=== PATIENT | male | born 1950 | race Caucasian/White ===

== ENCOUNTER → 2020-09-10 11:34 | Outpatient (BNVA) | payer MEDICARE, OTHER, SELFPAY | PROVIDERS: Family Provider Family Medicine; Referring Provider Family Medicine; Visit Provider Specialist | DX: M25.552 Pain in left hip (principal) | CPT/HCPCS: 73523 ==

== ENCOUNTER → 2020-09-24 13:57 | Outpatient (BNVA) | payer MEDICARE, OTHER, SELFPAY | PROVIDERS: Family Provider Family Medicine; Referring Provider Specialist; Visit Provider Anesthesiology Pain Medicine | DX: G89.29 Other chronic pain (principal); M48.062 Spinal stenosis, lumbar region with neurogenic claudication; M47.816 Spondylosis without myelopathy or radiculopathy, lumbar region; M53.3 Sacrococcygeal disorders, not elsewhere classified | CPT/HCPCS: 99204 ==

== ENCOUNTER 2020-10-06 15:37 | Outpatient (CLI) | payer MEDICARE, OTHER, SELFPAY ==
--- NOTE | 2020-10-06 16:45 | MR_ITS ---
WS: [id number] MRI LUMBAR SPINE NONCONTRAST HISTORY: M48.062 - Spinal stenosis, chronic back pain. COMPARISON: None available. TECHNIQUE: Sagittal and axial multisequence imaging is submitted. Advanced degenerative disc disease in the cervical spine. Component of central canal stenosis at sukumar ral levels most significant at C3-4 and C5-6. L4 anterolisthesis by 2 mm. 20% age indeterminate compression fracture involving L3. No retropulsion of posterior vertebral body. There is very minimal edema along the superior endplate of the L3 verteb ral body greatest to the LEFT of midline. Mild disc space narrowing and desiccation throughout. Benign hemangioma at L5. Conus terminates normally at L1-2 disc level. L1-L2: Mild annular disc bulge. Disc protrusion and osteophyte in the RIGHT foramen with significant encroachment upon the RIGHT L1 nerve root. Mild RIGHT foraminal stenosis. L2-L3: Diffuse asymmetric disc bulging with circumferential osteophytosis. Moderate ligamentum flavum hypertrophy and facet arthritis. Disc and osteophyte disease and facet arthritis causing mild centra l stenosis with moderate RIGHT and mild LEFT foraminal stenosis. There is significant inflammation eagle rrounding the facet joints bilaterally and the paraspinal soft tissues at L2 and L3. Slightly greater inflammatory changes on the RIGHT. L3-L4: Diffuse annular disc bulging and osteophytic ridging. Moderate ligamentum flavum and facet hyp ertrophy. Facet hypertrophy is encroaching into the foramina bilaterally and also the central canal. Mild increase in the epidural fat. Mild central and bilateral foraminal stenosis. L4-L5: Diffuse annular disc bulging and osteophytic ridging. Ligamentum flavum and moderate facet jeanette nt arthritis encroaching into the thecal sac. There is severe central, bilateral subarticular recess, lateral recess and moderate foraminal stenosis. L5-S1: Diffuse annular disc bulging and osteophytic ridging. Mild ligamentum flavum disease and facet arthritis. Moderate to severe bilateral foraminal stenosis, RIGHT greater than LEFT and mild central stenosis. Disc and osteophyte contact on the S1 nerve roots bilaterally, greatest on the LEFT. Partially visualized cyst associated with the LEFT kidney. Changes in the RIGHT psoas muscle at the L 2 vertebral body. Favor this is probably atrophy and fatty replacement. No increased signal noted on the STIR sequence. MR/MR lumbar spine wo con* [id number] IMPRESSION: 1. Age-indeterminate L3 compression fracture by 20%. There is a small amount o f marrow edema persisting in the LEFT lateral vertebral body. No retropulsion. 2. Facet joint synovitis bilaterally at L2-3, greatest on the RIGHT. Some of t hese changes may be new or to a recent facet joint injection if that history is relevant. 3. Multilevel central and foraminal stenosis. 4. Severe central, bilateral subarticular recess, lateral recess and moderate foraminal stenosis at L4-5 due to combination of factors. 5. Moderate to severe bilateral foraminal stenosis L5-S1, greatest on the RIGH T with mild central stenosis. Disc and osteophyte contact on the S1 nerve roots bilaterally. Contact greatest involving the LEFT S1 nerve root. 6. Moderate RIGHT foraminal stenosis L2-3 with mild central and LEFT foraminal stenosis. 7. Mild central and bilateral foraminal stenosis at L3-4.
== END 2020-10-06 15:38 | disposition home or self-care (01) ==
LOC: RADSHAW 15:43
PROVIDERS: PCP Family Medicine; Visit Provider Anesthesiology Pain Medicine
DX: M48.062 Spinal stenosis, lumbar region with neurogenic claudication (principal); S32.039A Unspecified fracture of third lumbar vertebra, initial encounter for closed fracture; M65.88 Other synovitis and tenosynovitis, other site; M48.061 Spinal stenosis, lumbar region without neurogenic claudication; M48.07 Spinal stenosis, lumbosacral region
CPT/HCPCS: 72148

== ENCOUNTER → 2020-10-08 13:13 | Outpatient (BNVA) | payer MEDICARE, OTHER, SELFPAY | PROVIDERS: PCP Family Medicine; Visit Provider Anesthesiology Pain Medicine | DX: G89.29 Other chronic pain (principal); M53.3 Sacrococcygeal disorders, not elsewhere classified; M47.816 Spondylosis without myelopathy or radiculopathy, lumbar region; M51.36 Other intervertebral disc degeneration, lumbar region; M48.061 Spinal stenosis, lumbar region without neurogenic claudication | CPT/HCPCS: 99214 ==

== ENCOUNTER → 2020-10-13 13:19 | Outpatient (BNVA) | payer MEDICARE, OTHER, SELFPAY | PROVIDERS: PCP Family Medicine; Visit Provider Anesthesiology Pain Medicine | DX: M47.816 Spondylosis without myelopathy or radiculopathy, lumbar region (principal) | CPT/HCPCS: 64493; 64494; 64495; J3490 ==

== ENCOUNTER 2020-10-20 06:00 | Outpatient (RCR) | payer MEDICARE, OTHER, SELFPAY | END 2020-11-05 23:59 | disposition home or self-care (01) | LOC: MPT 06:00 | PROVIDERS: PCP Family Medicine; Referring Provider Anesthesiology Pain Medicine; Visit Provider Anesthesiology Pain Medicine | DX: M54.5 Low back pain (principal); G89.29 Other chronic pain | CPT/HCPCS: 97110; 97140; 97162; G0283 ==

== ENCOUNTER → 2020-10-27 09:38 | Outpatient (BNVA) | payer MEDICARE, OTHER, SELFPAY | PROVIDERS: PCP Family Medicine; Visit Provider Anesthesiology Pain Medicine | DX: G89.29 Other chronic pain (principal); M51.36 Other intervertebral disc degeneration, lumbar region; M47.816 Spondylosis without myelopathy or radiculopathy, lumbar region; M48.061 Spinal stenosis, lumbar region without neurogenic claudication; M53.3 Sacrococcygeal disorders, not elsewhere classified; M25.551 Pain in right hip; M25.552 Pain in left hip | CPT/HCPCS: 99214 ==

== ENCOUNTER → 2020-11-04 14:22 | Outpatient (BNVA) | payer MEDICARE, OTHER, SELFPAY | PROVIDERS: PCP Family Medicine; Visit Provider Anesthesiology Pain Medicine | DX: M47.816 Spondylosis without myelopathy or radiculopathy, lumbar region (principal) | CPT/HCPCS: 64635; 64636; J1030 ==

== ENCOUNTER 2020-11-06 06:00 | Outpatient (RCR) | payer MEDICARE, OTHER, SELFPAY | END 2020-12-06 23:59 | disposition home or self-care (01) | LOC: MPT 06:00 | PROVIDERS: PCP Family Medicine; Referring Provider Anesthesiology Pain Medicine; Visit Provider Anesthesiology Pain Medicine | DX: M54.50 Low back pain, unspecified (principal); G89.29 Other chronic pain | CPT/HCPCS: 97110 ==

== ENCOUNTER → 2020-11-18 12:59 | Outpatient (BNVA) | payer MEDICARE, OTHER, SELFPAY | PROVIDERS: PCP Family Medicine; Visit Provider Anesthesiology Pain Medicine | DX: Z01.812 Encounter for preprocedural laboratory examination (principal); E11.9 Type 2 diabetes mellitus without complications; M47.816 Spondylosis without myelopathy or radiculopathy, lumbar region | CPT/HCPCS: 36416; 64635; 64636; 82962; J1030 ==

== ENCOUNTER → 2020-12-02 09:23 | Outpatient (BNVA) | payer MEDICARE, OTHER, SELFPAY | PROVIDERS: PCP Family Medicine; Visit Provider Anesthesiology Pain Medicine | DX: G89.29 Other chronic pain (principal); M53.3 Sacrococcygeal disorders, not elsewhere classified; M47.816 Spondylosis without myelopathy or radiculopathy, lumbar region; M51.36 Other intervertebral disc degeneration, lumbar region; M48.061 Spinal stenosis, lumbar region without neurogenic claudication | CPT/HCPCS: 99212; 99213 ==

== ENCOUNTER 2022-08-31 10:28 | Oncology outpatient (recurring) (ONCR) | payer MEDICARE, OTHER, SELFPAY ==
[2022-08-31 11:03] LABS: Immunoglobulin IGA 104 mg/dL (70-400); Immunoglobulin IGG 2937 mg/dL (700-1600); Immunoglobulin IGM 33 mg/dL (40-230)
== END 2022-09-05 23:59 | disposition home or self-care (01) ==
PROVIDERS: PCP Family Medicine; Visit Provider Internal Medicine Medical Oncology
DX: D47.2 Monoclonal gammopathy (principal); E83.52 Hypercalcemia; N28.89 Other specified disorders of kidney and ureter; D69.6 Thrombocytopenia, unspecified; R16.1 Splenomegaly, not elsewhere classified; D64.9 Anemia, unspecified
CPT/HCPCS: 36415; 82784; 99204